=== PATIENT | male | born 1955 | race Caucasian/White ===

== ENCOUNTER → 2018-08-01 | Outpatient (CLI) | payer BC ==
--- NOTE | 2018-08-01 14:56 | KCIC ---
MRI Lumbar Spine without contrast History: Low back pain, scoliosis, worsening back pain for 3 to 4 months Technique: Multiplanar, multi sequential noncontrast MR imaging was performed of the lumbar spine. Comparison: None Findings: There is more acutely angled mild levoscoliosis centered near L1-2, rotary component. There is mild right lateral subluxation L1 relative to L2 as better seen on the localizer. There is advanced degenerative disc disease at L1-2, prominent endplate edema at this level without fluid in the intervertebral disc space. There is also negligible posterior subluxation L1 relative to L2 greater on the right. There is also moderate to severe degenerative disc disease at L5-S1, mild to moderate degenerative disc disease L2-3, minimally at L4-5. There is mild reversal of the lordotic curvature centered near L1-L2. Conus terminates near T12-L1. There are anterior annular tears L2-3 through L4-5 and also posteriorly at L5-S1. There are hemangiomas most notable of S1, some smaller foci of L4 and L1. T12-L1: Spinal canal and neural foramina are adequate. L1-L2: There is broad bulge superimposed on minimal disc osteophyte complex, indentation upon the ventral thecal sac greater in the right lateral recess with mild right lateral recess stenosis. There is mild buckling of the ligamentum flavum. Left neural foramen is adequate. There is mild narrowing of the right neural foramen primarily from posteriorly by facet. Bulge is near the extraforaminal left L1 nerve root without significant displacement. L2-L3: There is minimal disc osteophyte complex and bulge. There is mild buckling of the ligamentum flavum and facet hypertrophic change. There is variable mild narrowing of the far lateral recesses greater on the right. Neural foramina are overall adequate. L3-L4: There is mild to moderate facet degenerative change and mild buckling of the ligamentum flavum. There is negligible disc osteophyte complex. There is mild narrowing of the far left lateral recess. There is mild narrowing of the left neural foramen, right neural foramen adequate. L4-L5: There is [id number] buckling of the ligamentum flavum greater on the left, also facet degenerative change. There is disc osteophyte complex and superimposed broad bulge somewhat greater in the left lateral recess. There is moderate to severe narrowing of the far left lateral recess with contact of the descending left L5 nerve root, [id number] narrowing of the far right lateral recess. There is mild to moderate narrowing of the left neural foramen, minimal inferior narrowing of the right neural foramen by disc osteophyte complex greater distally. There is right posterior annular tear. L5-S1: There is shallow broad protrusion about 2 to 3 mm AP, near the descending S1 nerve roots without significant impingement or significant spinal stenosis. There is mild buckling of the ligamentum flavum. There is mild to moderate left and mild right facet degenerative change. There is [id number] narrowing of the left neural foramen narrowing by facet degenerative change posteriorly and also inferior disc osteophyte complex. Right neural foramen is adequate. Impression: 1. There is more acutely angled mild levoscoliosis centered at L1-2, degree of right lateral subluxation L1 relative to L2. There is fairly advanced L1-2 degenerative disc disease and prominent L1-2 endplate edema likely reactive/degenerative in etiology. There is a lesser degree of degenerative disc disease at other levels of lumbar spine. 2. There is variable lateral recess stenosis as described most notable of the left lateral recess at L4-5 with contact descending left L5 nerve root, lesser degree of narrowing on the right L4-5 and minimal narrowing at more superior levels as described. 3. There is mild to moderate narrowing of the left L4-5 and L5-S1 neural foramina, other minimal narrowing as stated. Electronically signed by: Robert Membreno MD (08/01/2018 2:53 PM) [id number]
== END | disposition home or self-care (01) ==
LOC: KCIC MRI 14:00
PROVIDERS: ATTEND Family Medicine
DX: S33.110A Subluxation of L1/L2 lumbar vertebra, initial encounter (principal); M47.817 Spondylosis without myelopathy or radiculopathy, lumbosacral region; M48.07 Spinal stenosis, lumbosacral region; M25.78 Osteophyte, vertebrae; D18.09 Hemangioma of other sites; X58.XXXA Exposure to other specified factors, initial encounter; Y93.89 Activity, other specified; Y92.89 Other specified places as the place of occurrence of the external cause; Y99.8 Other external cause status
CPT/HCPCS: 72148

== ENCOUNTER → 2020-10-12 | Outpatient (CLI) | payer BC ==
--- NOTE | 2020-10-12 13:14 | KCIC ---
MR LUMBAR SPINE [id number] History: Reason: DEGEN DISC DISEASE, SPINAL DEFORMITY, FORAMINAL STENOSIS / Spl. Instructions: Known scoliosis. / History: New right sided lower back pain into right hip and thigh, 6 mths. Technique: Multiplanar, multi sequential MR imaging was performed of the lumbar spine. Comparison: August 01, 2018 Findings: Mild leftward curvature the lumbar spine centered at L1-L2. Right lateral subluxation of L1 on L2. No rmal vertebral body height. No acute fracture. Degenerative endplate edema L1-L2. Conus terminates at the normal location. No evidence of nerve root clumping. L1-L2: Broad-based disc bulge. Mild right subarticular recess narrowing. No canal narrowing. Mild fa cet arthropathy. Left facet joint effusion. Mild right neuroforaminal narrowing. L2-L3: Broad-based disc bulge. Mild subarticular recess narrowing. Minimal canal narrowing. Moderate facet arthropathy. Mild right neuroforaminal narrowing. L3-L4: Disc bulge. Moderate left and mild right facet arthropathy. Mild left subacute recess narrowi ng. No canal narrowing. No neuroforaminal narrowing. L4-L5: Broad-based disc bulge. Moderate facet arthropathy. Mild canal narrowing. Severe left subarti cular recess narrowing. Abutment of the descending left L5 nerve root. Right foraminal annular fissur e. Mild bilateral neuroforaminal narrowing. L5-S1: Central disc bulge and annular fissure. Advanced left and moderate right facet arthropathy. M ild left subarticular recess narrowing. Slight abutment of the descending left S1 nerve root. No jennie l narrowing. Mild to moderate left neuroforaminal narrowing. Impression: 1. Moderate multilevel lumbar spondylosis with leftward curvature. 2. L4-5 and L5-S1 subarticular recess narrowing with abutment of descending nerve roots. Correlate f or radiculopathy. 3. Neuroforaminal narrowing most prominent left L5-S1. Electronically signed by: Rosales John DO (10/12/2020 1:12 PM) [id number]
--- NOTE | 2020-10-12 13:17 | KCIC ---
Standing whole spine scoliotic series: HISTORY: Spinal deformity AP and lateral standing views were obtained of the entire spine. FINDINGS: C-spine: There is moderate degenerative changes at C5-C6 with loss of intervertebral disc material and margina l spurring and eburnation. There is grade 1 retrolisthesis of C3 on C4 and C5 on C6 and grade 1 anter olisthesis of C6 on C7. There is no loss vertebral stature. There is no prevertebral soft tissue swel ling. Thoracic spine: There is dextroconvex scoliosis of the thoracic spine from T5 through T10 with the apex at T7. There is a Mistry angle of 21.6 degrees. The vertebral bodies are aligned in the lateral view. There is no loss of vertebral body stature. Lumbosacral spine: There is marked discogenic disease at L1-L2 with loss of intervertebral disc material and marginal sp urring of the endplates. There is also spurring at endplates of L2-L3. The vertebral bodies are align ed in the lateral view. There is no loss vertebral stature. There is moderate levoconvex scoliosis with rotary scoliosis of L2-L5 with the apex at L2. There is a Mistry angle is 20.4 degrees. IMPRESSION: 1. Dextro convex sclerosis of the thoracic spine and levoconvex scoliosis with rotary scoliosis of th e lumbar spine. 2. Degenerative changes especially at C5-C6 and L1-L2. Electronically signed by: Noman Boggs III, MD (10/12/2020 1:15 PM) [facility]
== END ==
LOC: KCIC MRI 09:00
PROVIDERS: ATTEND Neurological Surgery
DX: M47.27 Other spondylosis with radiculopathy, lumbosacral region (principal); M51.17 Intervertebral disc disorders with radiculopathy, lumbosacral region; M48.07 Spinal stenosis, lumbosacral region; M47.812 Spondylosis without myelopathy or radiculopathy, cervical region; M41.85 Other forms of scoliosis, thoracolumbar region; Q76.49 Other congenital malformations of spine, not associated with scoliosis; M99.83 Other biomechanical lesions of lumbar region
CPT/HCPCS: 72082; 72148